=== PATIENT | male | born 1975 | race Caucasian/White ===

== ENCOUNTER 2016-11-29 19:09 | Emergency (ER) | payer MEDICAID, OTHER ==
[~2016-11-29] VITALS: Ht 182.9 cm; Wt 74.9 kg
[~2016-11-29 19:09] MED LIST: CYCL10TA50 PO
[2016-11-29 19:11] VITALS: BP 114/80
== END 2016-11-29 20:40 | disposition home or self-care (01) ==
LOC: ED 20:05
DX: S93.402A Sprain of unspecified ligament of left ankle, initial encounter (principal); X50.1XXA Overexertion from prolonged static or awkward postures, initial encounter; Y93.89 Activity, other specified; Y92.009 Unspecified place in unspecified non-institutional (private) residence as the place of occurrence of the external cause; Y99.8 Other external cause status
CPT/HCPCS: 99284

== ENCOUNTER 2017-02-02 16:21 | Emergency (ER) | payer SELFPAY ==
[~2017-02-02] VITALS: Ht 182.9 cm; Wt 71.8 kg
[2017-02-02] MEDS ORDERED: OXYcodone/APAP 5/325MG TABLET ONE (17:21)
[2017-02-02] MEDS ORDERED: OXYcodone/APAP 5/325MG TABLET PO ONE (17:30)
[2017-02-02 17:33] VITALS: BP 124/80
== END 2017-02-02 17:49 | disposition home or self-care (01) ==
LOC: ED 17:00
DX: K04.7 Periapical abscess without sinus (principal); K02.9 Dental caries, unspecified
CPT/HCPCS: 99283

== ENCOUNTER 2018-01-05 16:06 | Emergency (ER) | payer MEDICAID, OTHER ==
[~2018-01-05] VITALS: Ht 182.9 cm; Wt 77.0 kg
[2018-01-05 16:07] VITALS: BP 129/72
== END 2018-01-05 16:33 | disposition home or self-care (01) ==
LOC: ED 16:10
DX: K02.9 Dental caries, unspecified (principal); K08.89 Other specified disorders of teeth and supporting structures
CPT/HCPCS: 99283

== ENCOUNTER 2018-07-02 15:05 | Emergency (ER) | payer SELFPAY ==
[~2018-07-02] VITALS: Ht 182.9 cm; Wt 68.5 kg
[2018-07-02 15:07] VITALS: BP 127/78
[2018-07-02] MEDS ORDERED: LIDOCAINE-MPF 1%, 5ML ONE (15:27)
[2018-07-02] MEDS ORDERED: BUPIVACAINE 0.25% ONE (15:28)
[2018-07-02] MEDS ORDERED: LIDOCAINE-MPF 1%, 5ML INFIL ONE (15:30)
[2018-07-02] MEDS ORDERED: BUPIVACAINE/PF-EPI 0.25% 1:200K SQ ONE (15:30)
== END 2018-07-02 15:43 | disposition home or self-care (01) ==
LOC: ED 15:35
DX: K08.89 Other specified disorders of teeth and supporting structures (principal)
CPT/HCPCS: 64402; 99284

== ENCOUNTER 2018-07-11 10:27 | Emergency (ER) | payer OTHER ==
[~2018-07-11] VITALS: Ht 182.9 cm; Wt 69.4 kg
[2018-07-11 10:42] VITALS: BP 108/68
[2018-07-11] MEDS ORDERED: OXYcodone/APAP 5/325MG TABLET ONE (10:55)
[2018-07-11] MEDS ORDERED: METHOCARBAMOL 750 MG TABLET ONE (10:55)
--- NOTE | 2018-07-11 10:59 | NUR ---
PT MEDICATED PER ORDER.
[2018-07-11] MEDS ORDERED: OXYcodone/APAP 5/325MG TABLET PO ONE (11:00)
[2018-07-11] MEDS ORDERED: METHOCARBAMOL 750 MG TABLET PO ONE (11:00)
== END 2018-07-11 11:49 | disposition home or self-care (01) ==
LOC: ED 11:04
DX: S39.012A Strain of muscle, fascia and tendon of lower back, initial encounter (principal); M54.41 Lumbago with sciatica, right side; X58.XXXA Exposure to other specified factors, initial encounter; Y93.89 Activity, other specified; Y92.89 Other specified places as the place of occurrence of the external cause; Y99.8 Other external cause status
CPT/HCPCS: 99284; J7512

== ENCOUNTER 2018-08-02 04:11 | Emergency (ER) | payer SELFPAY ==
[~2018-08-02] VITALS: Ht 182.9 cm; Wt 70.2 kg
[2018-08-02 04:13] VITALS: BP 112/67
[2018-08-02] MEDS ORDERED: LIDOCAINE-MPF 1%, 5ML ONE ×2 (04:40→05:11)
[2018-08-02] MEDS ORDERED: LIDOCAINE-MPF 1%, 5ML INFIL ONE (05:00)
--- NOTE | 2018-08-02 05:42 | NUR ---
ABRAM GUTHRIE AT BEDSIDE.
--- NOTE | 2018-08-02 06:07 | NUR ---
Patient/Caregiver given discharge instructions and they have confirmed that they understand the instructions. Patient ambulatory with steady gait.
== END 2018-08-02 06:39 | disposition home or self-care (01) ==
LOC: ED 05:21
DX: S61.243A Puncture wound with foreign body of left middle finger without damage to nail, initial encounter (principal); W56.52XA Struck by other fish, initial encounter; Y93.89 Activity, other specified; Y92.828 Other wilderness area as the place of occurrence of the external cause; Y99.8 Other external cause status
CPT/HCPCS: 64450; 99284